=== PATIENT | female | born 1995 | race Caucasian/White ===

== ENCOUNTER 2017-06-01 12:03 | Emergency (ER) | payer BC, MEDICAID ==
[~2017-06-01] VITALS: Ht 171.5 cm; Wt 56.7 kg
[~2017-06-01 12:03] MED LIST: COLACE100 MG PO; MOTRIN800 MG PO; NORCO 325-5 MG1 TAB PO; PRENATAL PLUS I1 TAB PO
== END 2017-06-01 13:25 | disposition short-term general hospital (02) ==
LOC: ER 12:03
DX: J03.90 Acute tonsillitis, unspecified (principal); F17.210 Nicotine dependence, cigarettes, uncomplicated; Z79.899 Other long term (current) drug therapy